=== PATIENT | female | born 1995 | race African-American/Black ===

== ENCOUNTER 2016-11-16 12:09 | Emergency (ER) | payer MEDICAID, SELFPAY | END 2016-11-16 12:33 | disposition home or self-care (01) | LOC: NAV ERS 12:09 | DX: K02.9 Dental caries, unspecified (principal) | CPT/HCPCS: 99282 ==

== ENCOUNTER 2017-02-04 13:04 | Emergency (ER) | payer SELFPAY ==
[2017-02-04] MEDS ORDERED: Ibuprofen 800 MG TAB ONE (13:46)
[2017-02-04] MEDS ORDERED: Albuterol Sulfate 2.5 mg/0.5 ml Neb ONE (14:12)
[2017-02-04] MEDS ORDERED: Sodium Chloride For Inhalation 0.9% 3 ML NEB ONE (14:12)
== END 2017-02-04 14:55 | disposition home or self-care (01) ==
LOC: NAV ERS 13:04
DX: J20.9 Acute bronchitis, unspecified (principal); J06.9 Acute upper respiratory infection, unspecified
CPT/HCPCS: 94640; J7611

== ENCOUNTER 2017-05-16 14:09 | Emergency (ER) | payer SELFPAY ==
[2017-05-17 22:59] LABS: Chlamydia by PCR Not Detected (NotDetected); GC by PCR Not Detected (NotDetected)
== END 2017-05-16 15:08 | disposition home or self-care (01) ==
LOC: NAV ERS 14:09
DX: J06.9 Acute upper respiratory infection, unspecified (principal)
CPT/HCPCS: 87081; 87430; 87491; 87591; 99283

== ENCOUNTER 2017-08-23 12:37 | Emergency (ER) | payer SELFPAY ==
[2017-08-23] MEDS ORDERED: predniSONE 20 MG TAB ONE (12:57)
[2017-08-23] MEDS ORDERED: Amoxicillin/Potassium Clav 875 MG TAB ONE (12:57)
[2017-08-23] MEDS ORDERED: HYDROcodone/Acetaminophen 10/325 mg Tablet ONE (12:58)
== END 2017-08-23 13:18 | disposition home or self-care (01) ==
LOC: NAV ERS 12:37
DX: J03.90 Acute tonsillitis, unspecified (principal)
CPT/HCPCS: 99282; J7506

== ENCOUNTER 2017-09-25 18:49 | Emergency (ER) | payer SELFPAY ==
[2017-09-25 19:13] LABS: Pregnancy Test - Urine (BHCG) Negative (Negative); Pregu Control Background? CLEAR/WHITE (CLR/WHITE); Pregu Control Bar Appear? YES (CONTROL BAR); Specific Gravity 1.021 (1.002-1.036)
[2017-09-25] MEDS ORDERED: Ketorolac Tromethamine 60 MG/2 ML VIAL ONE (19:24)
--- NOTE | 2017-09-25 19:47 | RAD ---
PA AND LATERAL CHEST: History: Chest pain, cough. FINDINGS: The cardiomediastinum is normal. The lungs are expanded and clear. The bony thorax is normal. IMPRESSION: Normal exam. POS: [facility]
== END 2017-09-25 19:59 | disposition home or self-care (01) ==
LOC: NAV ERS 18:49
DX: R07.89 Other chest pain (principal); F17.210 Nicotine dependence, cigarettes, uncomplicated
CPT/HCPCS: 71046; 81025; 96372; J1885

== ENCOUNTER 2018-03-13 12:50 | Outpatient (CLI) | payer OTHER ==
--- NOTE | 2018-03-13 14:46 | ULT ---
ULTRASOUND OBSTETRICAL COMPLETE: DATE: 03/13/2018. HISTORY: A 23-year-old female. Evaluation of size and dates. FINDINGS: number: Mercado. lie: Cephalic. Maternal cervix: 4.5 cm long and closed. Placenta: Anterior. No placenta previa. Amniotic fluid volume: 16 cm. heart rate: 136 b.p.m. The following anatomy is visualized, with no evidence of anomalies: Head, lateral ventricles, cerebellum, nose and lips, spine, upper limbs, lower limbs, four chamber he art, umbilical cord, cord insertion, stomach, kidneys, and bladder. biometry: Head circumference (HC): 18.4 cm 20 w 5 d Biparietal diameter (BPD): 4.8 cm 20 w 4 d Abdominal circumference (AC): 15.6 cm 20 w 5 d Femur length (FL): 3.4 cm 20 w 5 d Average ultrasound age (AUA): 20 w 3 d Estimated date of delivery (IGNACIO): 07/28/2018. Gestational age by LMP: 20 w 4 d. Estimated weight (EFW): 374 g +/- 56 g (13 oz). IMPRESSION: 1. Live 2nd trimester intrauterine gestation. 2. Estimated gestational age of 20 weeks, 3 days. 3. Cephalic lie. 4. No anatomical abnormalities. osbaldo [] POS: [facility]
== END 2018-03-13 12:51 | disposition home or self-care (01) ==
LOC: NAV ULT 12:50
PROVIDERS: ATTEND Family Medicine
DX: Z34.02 Encounter for supervision of normal first pregnancy, second trimester (principal); Z3A.20 20 weeks gestation of pregnancy
CPT/HCPCS: 76805

== ENCOUNTER 2018-05-27 13:30 | Emergency (ER) | payer OTHER ==
[2018-05-27 13:55] LABS: Bilirubin Negative (Negative); Blood, Urine Negative (Negative); Clarity Clear (Clear); Glucose, Urine (Dipstick) Negative (Negative); Leukocyte Trace (Negative); Nitrite Negative (Negative); Protein, Urine (Dipstick) Negative (Neg-Trace)
[2018-05-27 14:23] LABS: Bacteria/HPF 1+ HPF (None Seen); RBC/HPF 0-3 HPF (0-3); Squamous Epithelial 21-50 HPF (0-3); WBC/HPF 0-3 HPF (0-3)
== END 2018-05-27 14:34 | disposition home or self-care (01) ==
LOC: NAV ERS 13:30
DX: O99.89 Other specified diseases and conditions complicating pregnancy, childbirth and the puerperium (principal); M54.5 Low back pain; O99.333 Smoking (tobacco) complicating pregnancy, third trimester; Z3A.31 31 weeks gestation of pregnancy
CPT/HCPCS: 81003; 81015; 87086; 99283

== ENCOUNTER 2018-11-20 15:27 | Emergency (ER) | payer OTHER | END 2018-11-20 16:15 | disposition home or self-care (01) | LOC: NAV ERS 15:27 | DX: K08.89 Other specified disorders of teeth and supporting structures (principal); F17.210 Nicotine dependence, cigarettes, uncomplicated | CPT/HCPCS: 99281 ==

== ENCOUNTER 2019-04-27 10:39 | Emergency (ER) | payer SELFPAY ==
--- NOTE | 2019-04-27 11:21 | RAD ---
XR Ankle Rt 3 View STANDARD INDICATION: Twisted right ankle with right ankle pain COMPARISON: None. FINDINGS: Bones: Intact. Ankle mortise: Symmetric. Talar Dome: Intact. Subtalar joint: Normal. Visualized hindfoot: Normal. Periarticular soft tissues: Normal. IMPRESSION: 1. No acute fracture or subluxation demonstrated.
== END 2019-04-27 11:39 | disposition home or self-care (01) ==
LOC: NAV ERS 10:39
DX: S93.401A Sprain of unspecified ligament of right ankle, initial encounter (principal); F17.210 Nicotine dependence, cigarettes, uncomplicated; X50.1XXA Overexertion from prolonged static or awkward postures, initial encounter

== ENCOUNTER 2019-06-30 13:12 | Emergency (ER) | payer SELFPAY | END 2019-06-30 14:49 | disposition home or self-care (01) | LOC: NAV ERS 13:12 | DX: J06.9 Acute upper respiratory infection, unspecified (principal) | CPT/HCPCS: 87081; 87430; 87804; 99283 ==

== ENCOUNTER 2019-08-15 21:26 | Emergency (ER) | payer SELFPAY | END 2019-08-15 21:48 | disposition home or self-care (01) | LOC: NAV ERS 21:26 | DX: J06.9 Acute upper respiratory infection, unspecified (principal) | CPT/HCPCS: 99283 ==

== ENCOUNTER 2020-12-16 23:09 | Emergency (ER) | payer MEDICAID, OTHER ==
[2020-12-16 23:32] LABS: Bilirubin Negative (Negative); Blood, Urine Negative (Negative); Clarity Clear (Clear); Glucose, Urine (Dipstick) Negative (Negative); Ketone, Urine Negative (Negative); Leukocyte Negative (Negative); Nitrite Negative (Negative); Protein, Urine (Dipstick) Negative (Neg-Trace); Specific Gravity, Urine 1.028 (1.002-1.036); pH, Urine 6.5 (5.0-9.0)
[2020-12-16 23:51] LABS: #Eosinphils 0.1 thou/uL (0.0-0.7); #Lymphocytes 1.4 thou/uL (1.20-3.40); #Monocytes 0.5 thou/uL (0.11-0.59); #Neutrophils 6.7 thou/uL (1.40-6.50); %Basophils 0.3 % (0.0-1.0); %Eosinophils 0.9 % (0.0-10.0); %Lymphocytes 16.4 % (21.0-51.0); %Monocytes 5.6 % (0.0-10.0); %Neutrophils 76.8 % (42.0-75.0); Hemoglobin 13.4 g/dL (12.0-16.0); Mean Corpuscular HGB CONC 32.7 g/dL (32.0-36.0); Mean Corpuscular Hemoglobin 29.3 pg (27.0-31.0); Mean Corpuscular Volume 89.5 fL (78.0-98.0); Mean Platelet Volume 8.5 fL (7.4-10.4); Platelet Count 173 thou/uL (130-400); Red Blood Cell (RBC) Count 4.57 mill/uL (4.20-5.40); White Blood Cell (WBC) Count 8.8 thou/uL (4.8-10.8)
[2020-12-17 00:10] LABS: ALT (SGPT) 8 U/L (8-55); AST (SGOT) 10 U/L (5-34); Albumin 3.4 g/dL (3.5-5.0); Alkaline Phosphatase 71 U/L (40-110); Anion Gap 13 mmol/L (10-20); BUN (Urea Nitrogen) 5 mg/dL (7.0-18.7); Bilirubin, Total 0.3 mg/dL (0.2-1.2); Calc. Creatinine Clearance 0 mL/min (70-130); Calcium 8.7 mg/dL (7.8-10.44); Carbon Dioxide 19 mmol/L (22-29); Chloride 108 mmol/L (98-107); Globulin 2.7 g/dL (2.4-3.5); Glucose 82 mg/dL (70-105); Lipase 16 U/L (8-78); Potassium 3.6 mmol/L (3.5-5.1); Protein, Total 6.1 g/dL (6.0-8.3); Sodium 136 mmol/L (136-145)
[2020-12-17] MEDS ORDERED: Metoclopramide HCl 10 MG TAB ONE (00:17)
== END 2020-12-17 00:40 | disposition home or self-care (01) ==
LOC: NAV ERS 23:09
DX: O26.892 Other specified pregnancy related conditions, second trimester (principal); R19.7 Diarrhea, unspecified; M54.9 Dorsalgia, unspecified; O99.891 Other specified diseases and conditions complicating pregnancy; Z3A.18 18 weeks gestation of pregnancy
CPT/HCPCS: 80053; 81003; 83690; 85025; 99284

== ENCOUNTER 2020-12-25 19:58 | Emergency (ER) | payer OTHER ==
[2020-12-25 20:55] LABS: ALT (SGPT) 10 U/L (8-55); AST (SGOT) 11 U/L (5-34); Albumin 3.6 g/dL (3.5-5.0); Alkaline Phosphatase 76 U/L (40-110); Anion Gap 13 mmol/L (10-20); BUN (Urea Nitrogen) 6 mg/dL (7.0-18.7); Bilirubin, Total 0.2 mg/dL (0.2-1.2); Calc. Creatinine Clearance 0 mL/min (70-130); Calcium 8.9 mg/dL (7.8-10.44); Carbon Dioxide 16 mmol/L (22-29); Chloride 108 mmol/L (98-107); Glucose 105 mg/dL (70-105); Potassium 3.8 mmol/L (3.5-5.1); Protein, Total 6.6 g/dL (6.0-8.3); Sodium 133 mmol/L (136-145)
[2020-12-25 20:57] LABS: INR-International Normal Ratio 0.9; PTT 25.9 sec (22.9-36.1); Prothrombin Time 12.2 sec (12.0-14.7)
[2020-12-25 21:12] LABS: %Monocytes 8.6 % (0.0-10.0); %Neutrophils 49.8 % (42.0-75.0); Hemoglobin 13.7 g/dL (12.0-16.0); Mean Corpuscular HGB CONC 31.4 g/dL (32.0-36.0); Mean Corpuscular Hemoglobin 28.9 pg (27.0-31.0); Mean Corpuscular Volume 91.8 fL (78.0-98.0); Mean Platelet Volume 9.8 fL (7.4-10.4); Platelet Count 205 thou/uL (130-400); RBC Distribution Width 12.4 % (11.5-14.5); Red Blood Cell (RBC) Count 4.74 mill/uL (4.20-5.40); White Blood Cell (WBC) Count 8.5 thou/uL (4.8-10.8)
[2020-12-25 21:13] LABS: #Basophils 0.1 thou/uL (0.0-0.2); #Eosinphils 0.2 thou/uL (0.0-0.7); #Lymphocytes 3.3 thou/uL (1.20-3.40); #Monocytes 0.7 thou/uL (0.11-0.59); #Neutrophils 4.2 thou/uL (1.40-6.50); %Basophils 0.6 % (0.0-1.0)
[2020-12-25 21:38] LABS: Alcohol Less than 10 mg/dL (Less than 10); Lipase 19 U/L (8-78)
== END 2020-12-25 21:30 | disposition short-term general hospital (02) ==
LOC: NAV ERS 19:58
DX: O9A.212 Injury, poisoning and certain other consequences of external causes complicating pregnancy, second trimester (principal); S80.211A Abrasion, right knee, initial encounter; S10.91XA Abrasion of unspecified part of neck, initial encounter; O99.892 Other specified diseases and conditions complicating childbirth; R10.9 Unspecified abdominal pain; Z3A.20 20 weeks gestation of pregnancy; V89.2XXA Person injured in unspecified motor-vehicle accident, traffic, initial encounter
CPT/HCPCS: 71045; 80053; 80307; 83690; 85025; 85610; 85730; 94760

== ENCOUNTER 2020-12-30 20:35 | Emergency (ER) | payer MEDICAID, OTHER ==
[2020-12-30 21:28] LABS: Bilirubin Negative (Negative); Blood, Urine Negative (Negative); Clarity Clear (Clear); Glucose, Urine (Dipstick) 100 mg/dL (Negative); Ketone, Urine Negative (Negative); Leukocyte Negative (Negative); Nitrite Negative (Negative); Protein, Urine (Dipstick) Negative (Neg-Trace); Specific Gravity, Urine 1.025 (1.005-1.030); Urobilinogen > or = 8.0 mg/dL (Less than 2); pH, Urine 6.5 (5.0-9.0)
== END 2020-12-30 21:58 | disposition home or self-care (01) ==
LOC: NAV ERS 20:35
DX: O9A.212 Injury, poisoning and certain other consequences of external causes complicating pregnancy, second trimester (principal); S30.1XXA Contusion of abdominal wall, initial encounter; Z3A.20 20 weeks gestation of pregnancy
CPT/HCPCS: 81003; 99284

== ENCOUNTER 2021-06-14 12:00 | Emergency (ER) | payer OTHER ==
[2021-06-14 12:52] LABS: #Basophils 0.1 thou/uL (0.0-0.2); #Eosinphils 0.2 thou/uL (0.0-0.7); #Lymphocytes 2.4 thou/uL (1.20-3.40); #Monocytes 0.4 thou/uL (0.11-0.59); #Neutrophils 2.6 thou/uL (1.40-6.50); %Basophils 1.1 % (0.0-1.0); %Eosinophils 4.2 % (0.0-10.0); %Lymphocytes 42.5 % (21.0-51.0); %Monocytes 7.5 % (0.0-10.0); %Neutrophils 44.7 % (42.0-75.0); Hemoglobin 13.5 g/dL (12.0-16.0); Mean Corpuscular Hemoglobin 27.8 pg (27.0-31.0); Mean Corpuscular Volume 86.9 fL (78.0-98.0); Mean Platelet Volume 8.2 fL (7.4-10.4); Platelet Count 186 thou/uL (130-400); RBC Distribution Width 14.2 % (11.5-14.5); Red Blood Cell (RBC) Count 4.84 mill/uL (4.20-5.40); White Blood Cell (WBC) Count 5.8 thou/uL (4.8-10.8)
[2021-06-17 21:19] LABS: Chlamydia by PCR Not Detected (NotDetected); GC by PCR Not Detected (NotDetected)
== END 2021-06-14 15:00 | disposition home or self-care (01) ==
LOC: NAV ERS 12:00
DX: O90.89 Other complications of the puerperium, not elsewhere classified (principal); N94.6 Dysmenorrhea, unspecified
CPT/HCPCS: 84702; 85025; 87491; 87591; 99284

== ENCOUNTER 2021-06-21 11:25 | Emergency (ER) | payer OTHER ==
[2021-06-21] MEDS ORDERED: Ibuprofen 800 MG TAB ONE (12:05)
[2021-06-22 17:43] LABS: SARS-CoV-2 PCR by NAA Not Detected (NotDetected)
== END 2021-06-21 12:20 | disposition home or self-care (01) ==
LOC: NAV ERS 11:25
DX: J06.9 Acute upper respiratory infection, unspecified (principal); Z20.822 Contact with and (suspected) exposure to COVID-19; Z79.899 Other long term (current) drug therapy
CPT/HCPCS: 87804; 99283; U0003; U0005

== ENCOUNTER 2021-06-22 13:11 | Emergency (ER) | payer OTHER ==
[2021-06-22] MEDS ORDERED: Lidocaine Viscous Sol 2% 15 ml UD Cup ONE (13:29)
[2021-06-22] MEDS ORDERED: Amoxicillin/Potassium Clav 875 MG TAB ONE (13:53)
== END 2021-06-22 14:08 | disposition home or self-care (01) ==
LOC: NAV ERS 13:11
DX: K04.7 Periapical abscess without sinus (principal)
CPT/HCPCS: 41800

== ENCOUNTER 2021-12-18 21:15 | Emergency (ER) | payer OTHER ==
[2021-12-18 21:41] LABS: Bilirubin Negative (Negative); Blood, Urine Large (Negative); Clarity Turbid (Clear); Glucose, Urine (Dipstick) Negative (Negative); Ketone, Urine Negative (Negative); Leukocyte Negative (Negative); Nitrite Negative (Negative); Protein, Urine (Dipstick) Negative (Neg-Trace)
[2021-12-18 21:42] LABS: Pregnancy Test - Urine (BHCG) POSITIVE (Negative); Pregu Control Bar Appear? YES (CONTROL BAR)
[2021-12-18 21:43] LABS: Pregu Control Background? CLEAR/WHITE (CLR/WHITE)
[2021-12-18 22:11] LABS: #Basophils 0.1 thou/uL (0.0-0.2); #Eosinphils 0.2 thou/uL (0.0-0.7); #Lymphocytes 3.7 thou/uL (1.20-3.40); #Monocytes 0.6 thou/uL (0.11-0.59); #Neutrophils 3.9 thou/uL (1.40-6.50); %Basophils 1.7 % (0.0-1.0); %Eosinophils 2.1 % (0.0-10.0); %Lymphocytes 43.8 % (21.0-51.0); %Monocytes 7.2 % (0.0-10.0); %Neutrophils 45.2 % (42.0-75.0); Hemoglobin 13.3 g/dL (12.0-16.0); Mean Corpuscular HGB CONC 30.2 g/dL (32.0-36.0); Mean Corpuscular Hemoglobin 27.7 pg (27.0-31.0); Mean Platelet Volume 9.1 fL (7.4-10.4); Platelet Count 229 thou/uL (130-400); RBC Distribution Width 13.5 % (11.5-14.5); White Blood Cell (WBC) Count 8.6 thou/uL (4.8-10.8)
[2021-12-18 22:17] LABS: ALT (SGPT) 11 U/L (8-55); AST (SGOT) 13 U/L (5-34); Albumin 4.3 g/dL (3.5-5.0); Alkaline Phosphatase 111 U/L (40-110); Anion Gap 14 mmol/L (10-20); BUN (Urea Nitrogen) 11 mg/dL (7.0-18.7); Bilirubin, Total 0.2 mg/dL (0.2-1.2); Calc. Creatinine Clearance 0 mL/min (70-130); Calcium 9.2 mg/dL (7.8-10.44); Carbon Dioxide 22 mmol/L (22-29); Chloride 105 mmol/L (98-107); Estimated GFR 109; Globulin 2.6 g/dL (2.4-3.5); Glucose 93 mg/dL (70-105); Protein, Total 6.9 g/dL (6.0-8.3); Sodium 137 mmol/L (136-145)
== END 2021-12-18 22:38 | disposition home or self-care (01) ==
LOC: NAV ERS 21:15
DX: O20.9 Hemorrhage in early pregnancy, unspecified (principal)
CPT/HCPCS: 80053; 81003; 81015; 81025; 84702; 85025; 99284

== ENCOUNTER 2022-01-20 18:29 | Emergency (ER) | payer OTHER ==
[2022-01-20] MEDS ORDERED: Acetaminophen 500 MG TAB ONE (19:00)
[2022-01-20 19:11] LABS: Bilirubin Negative (Negative); Blood, Urine Large (Negative); Clarity Clear (Clear); Glucose, Urine (Dipstick) Negative (Negative); Ketone, Urine Negative (Negative); Leukocyte Negative (Negative); Nitrite Negative (Negative); Protein, Urine (Dipstick) Negative (Neg-Trace)
[2022-01-20 19:15] LABS: Specific Gravity, Urine 1.025 (1.002-1.036); Squamous Epithelial None Seen HPF (0-3); WBC/HPF None Seen HPF (0-3)
[2022-01-20 19:16] LABS: Bacteria/HPF None Seen HPF (None Seen)
[2022-01-20 19:18] LABS: Pregnancy Test - Urine (BHCG) POSITIVE (Negative); Pregu Control Background? CLEAR/WHITE (CLR/WHITE); Pregu Control Bar Appear? YES (CONTROL BAR); Specific Gravity 1.025 (1.002-1.036)
== END 2022-01-20 20:45 | disposition home or self-care (01) ==
LOC: NAV ERS 18:29
DX: O99.891 Other specified diseases and conditions complicating pregnancy (principal); R51.9 Headache, unspecified; R42 Dizziness and giddiness
CPT/HCPCS: 36415; 81003; 81015; 81025; 84702; 99284

== ENCOUNTER 2022-02-17 21:23 | Emergency (ER) | payer OTHER ==
[2022-02-17 22:01] LABS: Bilirubin Negative (Negative); Blood, Urine Moderate (Negative); Clarity Clear (Clear); Glucose, Urine (Dipstick) Negative (Negative); Ketone, Urine Negative (Negative); Leukocyte Negative (Negative); Nitrite Negative (Negative); Protein, Urine (Dipstick) 30 mg/dL (Neg-Trace)
[2022-02-17 22:02] LABS: Specific Gravity, Urine 1.027 (1.002-1.036)
[2022-02-17 22:03] LABS: Pregnancy Test - Urine (BHCG) Negative (Negative); Specific Gravity 1.027 (1.002-1.036)
[2022-02-17 22:04] LABS: Pregu Control Background? CLEAR/WHITE (CLR/WHITE); Pregu Control Bar Appear? YES (CONTROL BAR)
[2022-02-17 22:06] LABS: Bacteria/HPF None Seen HPF (None Seen); RBC/HPF 0-3 HPF (0-3); WBC/HPF 0-3 HPF (0-3)
[2022-02-17] MEDS ORDERED: traMADol HCl 50 MG TAB ONE (22:20)
[2022-02-17] MEDS ORDERED: Amoxicillin/Potassium Clav 875 MG TAB ONE (22:20)
== END 2022-02-17 23:14 | disposition home or self-care (01) ==
LOC: NAV ERS 21:23
DX: K08.89 Other specified disorders of teeth and supporting structures (principal); N92.6 Irregular menstruation, unspecified
CPT/HCPCS: 81003; 81015; 81025

== ENCOUNTER 2022-02-18 01:43 | Emergency (ER) | payer OTHER ==
[2022-02-18] MEDS ORDERED: Ondansetron ODT 4 MG TAB ONE ×2 (02:25→02:27)
== END 2022-02-18 02:45 | disposition home or self-care (01) ==
LOC: NAV ERS 01:43
DX: R11.2 Nausea with vomiting, unspecified (principal)
CPT/HCPCS: 81003; 81015; 81025; 99283; Q0162

== ENCOUNTER 2022-04-23 14:06 | Emergency (ER) | payer OTHER ==
[2022-04-23] MEDS ORDERED: Ondansetron ODT 4 MG TAB ONE (14:22)
== END 2022-04-23 14:48 | disposition home or self-care (01) ==
LOC: NAV ERS 14:06
DX: J11.1 Influenza due to unidentified influenza virus with other respiratory manifestations (principal)
CPT/HCPCS: 99283; Q0162

== ENCOUNTER 2023-03-24 20:24 | Emergency (ER) | payer OTHER, SELFPAY ==
[2023-03-24] MEDS ORDERED: Ibuprofen 800 MG TAB ONE ×2 (20:46→20:50)
[2023-03-24] MEDS ORDERED: Penicillin V Potassium 250 MG TAB ONE ×2 (20:46→20:50)
== END 2023-03-24 20:53 | disposition home or self-care (01) ==
LOC: NAV ERS 20:24
DX: J02.0 Streptococcal pharyngitis (principal)
CPT/HCPCS: 87430; 99284

== ENCOUNTER 2023-10-15 22:28 | Emergency (ER) | payer OTHER, SELFPAY ==
[2023-10-15 23:10] LABS: Pregu Control Background? CLEAR/WHITE (CLR/WHITE); Pregu Control Bar Appear? YES (CONTROL BAR); Specific Gravity 1.027 (1.002-1.036)
[2023-10-15 23:11] LABS: Pregnancy Test - Urine (BHCG) Negative (Negative)
== END 2023-10-15 23:30 | disposition home or self-care (01) ==
LOC: NAV ERS 22:28
DX: R11.0 Nausea (principal)
CPT/HCPCS: 81025; 99284

== ENCOUNTER 2023-11-28 18:56 | Emergency (ER) | payer MEDICAID, SELFPAY ==
[2023-11-28 19:38] LABS: #Basophils 0.1 thou/uL (0.0-0.2); #Eosinphils 0.2 thou/uL (0.0-0.7); #Lymphocytes 2.8 thou/uL (1.20-3.40); #Monocytes 0.4 thou/uL (0.11-0.59); #Neutrophils 2.6 thou/uL (1.40-6.50); %Basophils 0.8 % (0.0-1.0); %Eosinophils 3.2 % (0.0-10.0); %Lymphocytes 45.9 % (21.0-51.0); %Monocytes 6.8 % (0.0-10.0); %Neutrophils 43.2 % (42.0-75.0); Hematocrit 40.6 % (36.0-47.0); Hemoglobin 12.6 g/dL (12.0-16.0); Mean Platelet Volume 7.6 fL (7.4-10.4); Platelet Count 231 10x3/uL (130-400); RBC Distribution Width 12.3 % (11.5-14.5); Red Blood Cell (RBC) Count 4.66 mill/uL (4.20-5.40); White Blood Cell (WBC) Count 6.1 10x3/uL (4.8-10.8)
== END 2023-11-28 20:34 | disposition short-term general hospital (02) ==
LOC: NAV ERS 18:56
DX: O20.9 Hemorrhage in early pregnancy, unspecified (principal); Z3A.09 9 weeks gestation of pregnancy
CPT/HCPCS: 36415; 84702; 85025; 99284

== ENCOUNTER 2023-12-02 22:40 | Emergency (ER) | payer MEDICAID ==
[2023-12-02] MEDS ORDERED: Acetaminophen 325 MG TAB ONE (23:13)
== END 2023-12-02 23:25 | disposition home or self-care (01) ==
LOC: NAV ERS 22:40
DX: O20.0 Threatened abortion (principal); Z3A.10 10 weeks gestation of pregnancy
CPT/HCPCS: 99283

== ENCOUNTER 2024-02-15 11:31 | Emergency (ER) | payer MEDICAID ==
[2024-02-15] MEDS ORDERED: Acetaminophen 500 MG TAB ONE (12:00)
[2024-02-15] MEDS ORDERED: AMOXicillin 250 MG CAP ONE (12:00)
== END 2024-02-15 12:13 | disposition home or self-care (01) ==
LOC: NAV ERS 11:31
DX: R07.89 Other chest pain (principal); K08.89 Other specified disorders of teeth and supporting structures; Z55.6 Problems related to health literacy
CPT/HCPCS: 93005

== ENCOUNTER 2024-03-16 18:49 | Emergency (ER) | payer MEDICAID, SELFPAY ==
[2024-03-16] MEDS ORDERED: Ibuprofen 200 MG TAB ONE (19:13)
== END 2024-03-16 20:05 | disposition home or self-care (01) ==
LOC: NAV ERS 18:49
DX: S60.112A Contusion of left thumb with damage to nail, initial encounter (principal); F17.210 Nicotine dependence, cigarettes, uncomplicated; W23.0XXA Caught, crushed, jammed, or pinched between moving objects, initial encounter
CPT/HCPCS: 99283

== ENCOUNTER 2024-03-19 16:44 | Emergency (ER) | payer MEDICAID ==
[2024-03-19] MEDS ORDERED: Ibuprofen 800 MG TAB ONE (19:32)
== END 2024-03-19 19:44 | disposition home or self-care (01) ==
LOC: NAV ERS 16:44
DX: S60.112A Contusion of left thumb with damage to nail, initial encounter (principal); F17.210 Nicotine dependence, cigarettes, uncomplicated; W23.0XXA Caught, crushed, jammed, or pinched between moving objects, initial encounter
CPT/HCPCS: 11740; 99283

== ENCOUNTER 2024-06-23 16:48 | Emergency (ER) | payer MEDICAID, OTHER ==
[2024-06-23] MEDS ORDERED: Ibuprofen 200 MG TAB ONE (17:13)
[2024-06-23] MEDS ORDERED: Mag-Al Plus 1200/1200/120 MG (30 mL) UDCUP ONE (17:13)
[2024-06-23 17:16] LABS: #Basophils 0.1 thou/uL (0.0-0.2); #Eosinophils 0.3 thou/uL (0.0-0.7); #Monocytes 0.4 thou/uL (0.11-0.59); #Neutrophils 2.7 thou/uL (1.40-6.50); %Basophils 1.9 % (0.0-1.0); %Lymphocytes 46.8 % (21.0-51.0); %Monocytes 5.4 % (0.0-10.0); %Neutrophils 41.9 % (42.0-75.0); Hematocrit 42.2 % (36.0-47.0); Hemoglobin 13.2 g/dL (12.0-16.0); Mean Corpuscular HGB CONC 31.4 g/dL (32.0-36.0); Mean Corpuscular Hemoglobin 27.1 pg (27.0-31.0); Mean Corpuscular Volume 86.5 fl (78.0-98.0); Mean Platelet Volume 9.4 fL (7.4-10.4); Platelet Count 228 10x3/uL (130-400); Red Blood Cell (RBC) Count 4.88 mill/uL (4.20-5.40); White Blood Cell (WBC) Count 6.5 10x3/uL (4.8-10.8)
[2024-06-23 17:32] LABS: ALT (SGPT) 19 U/L (Less than 34); AST (SGOT) 20 U/L (11-34); Albumin 4.1 g/dL (3.1-4.5); Alkaline Phosphatase 97 U/L (40-110); Anion Gap 11 mmol/L (10-20); BUN (Urea Nitrogen) 10 mg/dL (7.0-18.7); Bilirubin, Total 0.3 mg/dL (0.3-1.2); Calc. Creatinine Clearance 0 mL/min (70-130); Calcium 9.6 mg/dL (7.8-10.44); Carbon Dioxide 26 mmol/L (22-29); Chloride 107 mmol/L (98-107); Estimated GFR 109; Globulin 2.8 g/dL (2.4-3.5); Glucose 142 mg/dL (70-105); Potassium 4.1 mmol/L (3.5-5.1); Protein, Total 6.9 g/dL (6.0-8.3); Sodium 140 mmol/L (136-145)
[2024-06-23 17:36] LABS: Troponin I Less than 0.010 ng/mL (< 0.028)
[2024-06-23 20:31] LABS: Troponin I Less than 0.010 ng/mL (< 0.028)
== END 2024-06-23 21:04 | disposition home or self-care (01) ==
LOC: NAV ERS 16:48
DX: R07.2 Precordial pain (principal); F17.210 Nicotine dependence, cigarettes, uncomplicated
CPT/HCPCS: 71045; 80053; 84484; 85025; 85379; 93005

== ENCOUNTER 2025-01-24 16:56 | Emergency (ER) | payer MEDICAID ==
[2025-01-24] MEDS ORDERED: Ibuprofen 800 MG TAB ONE (17:29)
== END 2025-01-24 17:40 | disposition home or self-care (01) ==
LOC: NAV ERS 16:56
DX: K04.7 Periapical abscess without sinus (principal)
CPT/HCPCS: 99282

== ENCOUNTER 2025-02-15 16:20 | Emergency (ER) | payer MEDICAID, OTHER | END 2025-02-15 17:48 | disposition home or self-care (01) | LOC: NAV ERS 16:20 | DX: B34.9 Viral infection, unspecified (principal); Z87.891 Personal history of nicotine dependence | CPT/HCPCS: 87426; 94760; 99283 ==

== ENCOUNTER 2025-02-21 11:05 | Emergency (ER) | payer OTHER ==
[2025-02-21] MEDS ORDERED: Acetaminophen 500 MG TAB ONE (11:52)
== END 2025-02-21 12:20 | disposition home or self-care (01) ==
LOC: NAV ERS 11:05
DX: S93.431A Sprain of tibiofibular ligament of right ankle, initial encounter (principal); Z87.891 Personal history of nicotine dependence; W17.89XA Other fall from one level to another, initial encounter
CPT/HCPCS: 99283